=== PATIENT | male | born 1965 | race Caucasian/White ===

== ENCOUNTER 2021-10-14 07:23 | Inpatient (IN) | payer BC, MEDICAID ==
[~2021-10-14] VITALS: Ht 177.8 cm; Wt 95.5 kg
[~2021-10-14 07:23] MED LIST: ONDA8TAB6 PO
--- NOTE | 2021-10-14 08:22 | NUR ---
Stroke alert level [address] Chatterjee, last seen normal was before bed last night.
--- NOTE | 2021-10-14 08:27 | NUR ---
Pt being taken to CT.
[2021-10-14] MEDS ORDERED: iohexol 350MG/ML 100ml bottle IV ONE (08:32)
[2021-10-14 08:47] LABS: ALANINE AMINOTRANSFERASE 35 U/L (12-78); ALBUMIN 3.6 G/DL (3.4-5.0); ALBUMIN/GLOBULIN RATIO 1.1 (1.1-1.5); ALKALINE PHOSPHATASE 108 IU/L (46-116); ANION GAP 13 (8-16); ASPARTATE AMINO TRANSFERASE 1 U/L (10-37); BILIRUBIN,TOTAL 0.2 MG/DL (0.1-1.0); BLOOD UREA NITROGEN 18 MG/DL (7-18); BUN/CREATININE RATIO 18.2 (5.4-32.0); CALCIUM 8.4 MG/DL (8.5-10.1); CHLORIDE 109 MMOL/L (99-107); CREATININE 0.99 MG/DL (0.60-1.10); GLUCOSE 135 MG/DL (70-104); POTASSIUM 3.8 MMOL/L (3.5-5.1); SODIUM 143 MMOL/L (135-145); TOTAL CARBON DIOXIDE 21.3 MMOL/L (24-32); TOTAL PROTEIN 6.9 G/DL (6.4-8.2); eGFR 78 ML/MIN
--- NOTE | 2021-10-14 08:48 | NUR ---
PT BACK FROM CT, STROKE NURSE HAS BEEN AWAITING FOR PT RETURN IN ROOM.
[2021-10-14 08:49] LABS: BASOPHILS # (AUTO) 0.1 X10'3 (0-0.2); BASOPHILS % (AUTO) 0.8 % (0-1); EOSINOPHILS # (AUTO) 0.1 X10'3 (0-0.9); EOSINOPHILS % (AUTO) 1.7 % (0-6); HEMATOCRIT 42.1 % (42.0-52.0); HEMOGLOBIN 14.6 g/dl (14.0-17.9); LYMPHOCYTES # (AUTO) 1.8 X10'3 (1.1-4.8); LYMPHOCYTES % (AUTO) 24.6 % (21-51); MEAN CORPUSCULAR HEMOGLOBIN 30.7 PG (27.0-31.0); MEAN CORPUSCULAR HGB CONC 34.7 g/dL (33.0-36.5); MEAN CORPUSCULAR VOLUME 88.4 FL (78-98); MEAN PLATELET VOLUME 9.1 FL (7.4-10.4); MONOCYTES # (AUTO) 0.5 X10'3 (0-0.9); MONOCYTES % (AUTO) 6.9 % (2-12); NEUTROPHILS # (AUTO) 4.8 X10'3 (1.8-7.7); PLATELET COUNT 231 X10'3 (140-440); RED BLOOD COUNT 4.77 X10'6 (4.70-6.10); RED CELL DISTRIBUTION WIDTH 13.2 % (11.5-14.5); WHITE BLOOD COUNT 7.3 X10'3 (4.5-11.0)
[2021-10-14 09:33] LABS: APTT 26 SECONDS (22-32)
[2021-10-14] MEDS ORDERED: potassium CL 10mEq/100ml bag 100 ML IV PRN (09:35)
[2021-10-14] MEDS ORDERED: mag hydrox/Alum hydrox/simeth 30ml oral suspension PO PRN (09:35)
[2021-10-14] MEDS ORDERED: normal saline 1000ml 1,000 ML IV SCH (09:35)
[2021-10-14] MEDS ORDERED: acetaminophen 325mg tablet PO PRN (09:35)
[2021-10-14] MEDS ORDERED: magnesium hydroxide 30ml (MOM) UD suspension PO PRN (09:35)
[2021-10-14] MEDS ORDERED: magnesium 4gm in 100ml NS 100 ML IV PRN (09:35)
[2021-10-14] MEDS ORDERED: ondansetron/PF 4mg/2ml inj IV PRN (09:35)
[2021-10-14] MEDS ORDERED: magnesium 2GM in 50ml NS 50 ML IV PRN (09:35)
[2021-10-14] MEDS ORDERED: magnesium Cl slow-release 64mg tablet PO PRN (09:35)
[2021-10-14] MEDS ORDERED: POTASSIUM BICARB 20meq eff tab 20 MEQ TABLET.EFF PO PRN ×2 (09:35)
[2021-10-14 10:18] LABS: MAGNESIUM 1.9 MG/DL (1.5-2.4); POTASSIUM 4.3 MMOL/L (3.5-5.1)
[2021-10-14] MEDS ORDERED: clopidogrel 75mg tablet PO SCH (11:25)
--- NOTE | 2021-10-14 11:45 | NUR ---
Pt taken to MRI.
[2021-10-14] MEDS ORDERED: NO HOME MEDS (12:51)
--- NOTE | 2021-10-14 13:49 | NUR ---
relieving RN for break, pt is back from MRI, waiting for bed and test results, pt is GCS 15, alert and oriented x3, resp even and unlabored, family at bedside
--- NOTE | 2021-10-14 15:10 | NUR ---
report received from Simran RN
--- NOTE | 2021-10-14 15:14 | NUR ---
Report given to lucia Harris to go to room 1241L
[2021-10-14 15:20] VITALS: BP 136/77
--- NOTE | 2021-10-14 15:20 | NUR ---
pt arrived to [facility] floor via wheelchair, settled in room 3952V
[2021-10-14] MEDS ORDERED: ATOR20TA PO (16:53)
[2021-10-14] MEDS ORDERED: ASPI81TA52 PO (16:53)
--- NOTE | 2021-10-14 18:04 | NUR ---
Pt discharged to home at 1750, with all belongings, in private vehicle accompanied by . Discharge instructions and medications reviewed. New prescriptions e-scripted to Nilsa Correa. Pt instructed to follow up with PCP in 1-2 weeks, with instructions to return to ED for any new or worsening symptoms. Pt states understanding and willingness to comply with discharge instructions. IV DC'd, cannula intact. [facility]
[2021-10-14] MEDS ORDERED: docusate sod 100mg capsule PO SCH (20:00)
[2021-10-14] MEDS ORDERED: K and/or MAG REPLACEMENT MC SCH (20:00)
[2021-10-15] MEDS ORDERED: aspirin 81mg, enteric-coated 1 TAB TABLET.DR PO SCH (08:00)
== END 2021-10-14 17:45 | disposition home or self-care (01) | DRG 149 ==
LOC: ER 07:27 → ED HOLD 09:37 → PCU 3S 15:32
PROVIDERS: ADMIT Family Medicine; ATTEND Family Medicine
PROC: BW291ZZ Computerized Tomography (CT Scan) of Head and Neck using Low Osmolar Contrast (ICD-10-PCS; principal; 2021-10-14)
DX: H81.10 Benign paroxysmal vertigo, unspecified ear (principal); E78.00 Pure hypercholesterolemia, unspecified; Z91.19 Patient's noncompliance with other medical treatment and regimen; Z88.5 Allergy status to narcotic agent; Z79.899 Other long term (current) drug therapy; Z90.49 Acquired absence of other specified parts of digestive tract; Z88.7 Allergy status to serum and vaccine
CPT/HCPCS: 36415; 70450; 70496; 70498; 70544; 70551; 71045; 80053; 82948; 83735; 83880; 84132; 84484; 85025; 85610; 85730; 93005; 93306; 93880; 99285; A4615; G0378; J3490; J7030; Q9967

== ENCOUNTER 2023-06-12 07:51 | Inpatient (IN) | payer BC ==
[~2023-06-12] VITALS: Ht 177.8 cm; Wt 95.2 kg
[~2023-06-12 07:51] MED LIST changes: +ATOR20TA PO; -ONDA8TAB6 PO
[2023-06-12] MEDS: ondansetron/PF 4mg/2ml inj IV ONE (08:16)
[2023-06-12] MEDS: metroNIDAZOLE-Flagyl 500mg/NS 100 ML IV ONE (08:18)
[2023-06-12] MEDS: normal saline 1000ML IV soln IVB ONE (08:21)
[2023-06-12 08:29] LABS: BASOPHILS % (AUTO) 0.2 % (0-1); EOSINOPHILS % (AUTO) 0.1 % (0-6); HEMATOCRIT 44.1 % (42.0-52.0); HEMOGLOBIN 15.1 g/dl (14.0-17.9); LYMPHOCYTES # (AUTO) 0.6 X10'3 (1.1-4.8); LYMPHOCYTES % (AUTO) 3.5 % (21-51); MEAN CORPUSCULAR HEMOGLOBIN 30.5 PG (27.0-31.0); MEAN CORPUSCULAR HGB CONC 34.3 g/dL (33.0-36.5); MEAN CORPUSCULAR VOLUME 88.8 FL (78-98); MEAN PLATELET VOLUME 8.8 FL (7.4-10.4); MONOCYTES # (AUTO) 0.5 X10'3 (0-0.9); MONOCYTES % (AUTO) 3.4 % (2-12); NEUTROPHILS # (AUTO) 14.7 X10'3 (1.8-7.7); NEUTROPHILS % (AUTO) 92.8 % (42-75); PLATELET COUNT 225 X10'3 (140-440); RED BLOOD COUNT 4.97 X10'6 (4.70-6.10); RED CELL DISTRIBUTION WIDTH 13.5 % (11.5-14.5); WHITE BLOOD COUNT 15.9 X10'3 (4.5-11.0)
[2023-06-12] MEDS: HYDROmorphone 1 mg/ml syringe IV ONE (08:31)
[2023-06-12 08:40] LABS: ALBUMIN 3.8 G/DL (3.4-5.0); ANION GAP 14 (8-16); BLOOD UREA NITROGEN 14 MG/DL (7-18); BUN/CREATININE RATIO 12.2 (10.0-20.0); CALCIUM 8.8 MG/DL (8.5-10.1); CHLORIDE 103 MMOL/L (99-107); CREATININE 1.15 MG/DL (0.60-1.10); GLUCOSE 124 MG/DL (70-104); POTASSIUM 3.9 MMOL/L (3.5-5.1); SODIUM 138 MMOL/L (135-145); eCRCL 73 ML/MIN; eGFR 66 ML/MIN
[2023-06-12] MEDS ORDERED: iohexol 300mg/ml 100ml inj. ONE (09:10)
[2023-06-12] MEDS ORDERED: NO HOME MEDS (09:49)
[2023-06-12] MEDS ORDERED: mag hydrox/Alum hydrox/simeth 30ml oral suspension PO PRN (11:05)
[2023-06-12] MEDS ORDERED: acetaminophen 325mg tablet PO PRN (11:05)
[2023-06-12] MEDS ORDERED: magnesium hydroxide 30ml (MOM) UD suspension PO PRN (11:05)
[2023-06-12] MEDS ORDERED: magnesium 2GM in 50ml NS 50 ML IV PRN (11:05)
[2023-06-12] MEDS ORDERED: HYDROmorphone/PF 0.2 MG/ML SYRINGE IV PRN (11:05)
[2023-06-12] MEDS ORDERED: potassium Cl 20 mEq SR tablet PO PRN (11:05)
[2023-06-12] MEDS ORDERED: magnesium 4gm in 100ml NS 100 ML IV PRN (11:05)
[2023-06-12] MEDS ORDERED: potassium Cl 40MEQ/1/2NS 520ml 520 ML IV PRN (11:05)
[2023-06-12] MEDS: ciprofloxacin lact 400MG/200ML 200 ML IV ONE (11:07)
[2023-06-12] MEDS: normal saline 1000ml 1,000 ML IV SCH (11:18)
[2023-06-12] MEDS: HYDROmorphone inj. 0.5 MG/0.5 ML DISP.SYRIN IV PRN (11:34)
[2023-06-12] MEDS: ondansetron/PF 4mg/2ml inj IV PRN (11:40)
[2023-06-12 14:48] VITALS: BP 122/80; PULSE 71; RESP 20; TEMP 98; O2SAT 99
[2023-06-12] MEDS: proCHLORperazine 10 MG/2 ml inj IV PRN (15:13)
[2023-06-12] MEDS: oxyCODONE/APAP 10/325mg tablet PO PRN (16:18)
[2023-06-12] MEDS: metroNIDAZOLE-Flagyl 500mg/NS 100 ML IV SCH (16:19)
[2023-06-12 17:38] VITALS: RESP 14
[2023-06-12 18:30] VITALS: BP 124/62; PULSE 77; RESP 14; TEMP 98.8; O2SAT 96
[2023-06-12 19:00] VITALS: BP 124/62; PULSE 77; RESP 14; TEMP 98.8; O2SAT 96
[2023-06-12] MEDS: K and/or MAG REPLACEMENT MC SCH (20:00)
[2023-06-12] MEDS: docusate sod 100mg capsule PO SCH (20:13)
[2023-06-12] MEDS: ciprofloxacin lact 400MG/200ML 200 ML IV SCH (20:14)
[2023-06-12] MEDS: enoxaparin 40mg/0.4ml syringe SQ SCH (20:14)
[2023-06-12 22:00] VITALS: BP 109/55; PULSE 75; RESP 14; TEMP 96.6; O2SAT 94
[2023-06-12] MEDS: diatr meglu/diatrizoate 30ml oral sol.-(3 dose) bottle PO SCH (22:00)
[2023-06-13 06:26] LABS: BASOPHILS % (AUTO) 0.1 % (0-1); EOSINOPHILS % (AUTO) 0.1 % (0-6); HEMATOCRIT 37.2 % (42.0-52.0); HEMOGLOBIN 12.9 g/dl (14.0-17.9); LYMPHOCYTES # (AUTO) 0.8 X10'3 (1.1-4.8); LYMPHOCYTES % (AUTO) 6.5 % (21-51); MEAN CORPUSCULAR HEMOGLOBIN 30.9 PG (27.0-31.0); MEAN CORPUSCULAR HGB CONC 34.8 g/dL (33.0-36.5); MEAN CORPUSCULAR VOLUME 88.8 FL (78-98); MEAN PLATELET VOLUME 8.8 FL (7.4-10.4); MONOCYTES # (AUTO) 0.7 X10'3 (0-0.9); MONOCYTES % (AUTO) 5.3 % (2-12); NEUTROPHILS # (AUTO) 10.8 X10'3 (1.8-7.7); PLATELET COUNT 172 X10'3 (140-440); RED BLOOD COUNT 4.19 X10'6 (4.70-6.10); RED CELL DISTRIBUTION WIDTH 13.2 % (11.5-14.5); WHITE BLOOD COUNT 12.2 X10'3 (4.5-11.0)
[2023-06-13 06:30] VITALS: BP 96/45; PULSE 59; RESP 12; TEMP 96.8; O2SAT 96
[2023-06-13 06:52] LABS: ALANINE AMINOTRANSFERASE 65 U/L (12-78); ALBUMIN 2.8 G/DL (3.4-5.0); ALBUMIN/GLOBULIN RATIO 0.9 (1.1-1.5); ALKALINE PHOSPHATASE 82 IU/L (46-116); ANION GAP 8 (8-16); ASPARTATE AMINO TRANSFERASE 25 U/L (10-37); BLOOD UREA NITROGEN 13 MG/DL (7-18); BUN/CREATININE RATIO 13.4 (10.0-20.0); CALCIUM 7.5 MG/DL (8.5-10.1); CHLORIDE 106 MMOL/L (99-107); CHOL/HDL RATIO 3.8 (0.00-4.99); CHOLESTEROL 130 MG/DL (0-200); CREATININE 0.97 MG/DL (0.60-1.10); GLUCOSE 126 MG/DL (70-104); HDL CHOLESTEROL 34 MG/DL (35-60); LDL CHOLESTEROL 81 MG/DL (50-100); MAGNESIUM 1.8 MG/DL (1.5-2.4); POTASSIUM 3.6 MMOL/L (3.5-5.1); SODIUM 138 MMOL/L (135-145); TOTAL CARBON DIOXIDE 24.3 MMOL/L (24-32); TRIGLYCERIDES 80 MG/DL (20-135); eCRCL 87 ML/MIN; eGFR 80 ML/MIN
[2023-06-13 14:57] VITALS: BP 106/52; PULSE 78; RESP 16; TEMP 98; O2SAT 96
[2023-06-13 15:02] VITALS: TEMP 98
[2023-06-13 22:00] VITALS: BP 104/62; PULSE 69; RESP 16; TEMP 97.5; O2SAT 96
[2023-06-14 06:00] VITALS: BP 130/62; PULSE 63; RESP 14; TEMP 98.2; O2SAT 95
[2023-06-14 06:50] LABS: BASOPHILS % (AUTO) 0.1 % (0-1); EOSINOPHILS % (AUTO) 0.2 % (0-6); HEMATOCRIT 35.1 % (42.0-52.0); HEMOGLOBIN 12.1 g/dl (14.0-17.9); LYMPHOCYTES # (AUTO) 0.7 X10'3 (1.1-4.8); LYMPHOCYTES % (AUTO) 6.9 % (21-51); MEAN CORPUSCULAR HEMOGLOBIN 30.8 PG (27.0-31.0); MEAN CORPUSCULAR HGB CONC 34.4 g/dL (33.0-36.5); MEAN CORPUSCULAR VOLUME 89.3 FL (78-98); MEAN PLATELET VOLUME 9.1 FL (7.4-10.4); MONOCYTES # (AUTO) 0.5 X10'3 (0-0.9); MONOCYTES % (AUTO) 4.8 % (2-12); PLATELET COUNT 168 X10'3 (140-440); RED BLOOD COUNT 3.93 X10'6 (4.70-6.10); RED CELL DISTRIBUTION WIDTH 13.4 % (11.5-14.5); WHITE BLOOD COUNT 10.2 X10'3 (4.5-11.0)
[2023-06-14 07:15] LABS: ALANINE AMINOTRANSFERASE 51 U/L (12-78); ALBUMIN 2.7 G/DL (3.4-5.0); ALBUMIN/GLOBULIN RATIO 0.8 (1.1-1.5); ALKALINE PHOSPHATASE 105 IU/L (46-116); ANION GAP 9 (8-16); ASPARTATE AMINO TRANSFERASE 12 U/L (10-37); BILIRUBIN,TOTAL 1.2 MG/DL (0.1-1.0); BLOOD UREA NITROGEN 11 MG/DL (7-18); BUN/CREATININE RATIO 12.8 (10.0-20.0); CALCIUM 7.8 MG/DL (8.5-10.1); CHLORIDE 104 MMOL/L (99-107); CREATININE 0.86 MG/DL (0.60-1.10); GLUCOSE 105 MG/DL (70-104); POTASSIUM 3.3 MMOL/L (3.5-5.1); SODIUM 137 MMOL/L (135-145); TOTAL CARBON DIOXIDE 24.1 MMOL/L (24-32); TOTAL PROTEIN 6.2 G/DL (6.4-8.2); eCRCL 98 ML/MIN; eGFR > 90 ML/MIN
[2023-06-14 08:16] LABS: C DIFF ANTIGEN POSITIVE (NEGATIVE); C DIFF SPECIMEN=DIARRHEA? ACCEPTABLE; C DIFFICILE TOXINS A&B POSITIVE (Neg)
[2023-06-14] MEDS: potassium Cl 20 mEq SR tablet PO PRN (09:42)
[2023-06-14] MEDS ORDERED: METR-349 PO (12:02)
[2023-06-14] MEDS ORDERED: LACT1CAP26 PO (12:02)
[2023-06-14 12:06] VITALS: BP 156/81; PULSE 64; RESP 17; TEMP 97; O2SAT 99
[2023-06-14] MEDS ORDERED: HYDR-3965 PO (15:05)
[2023-06-14] MEDS ORDERED: lactobacillus rhamnosus 10,000 MMU CELLS/CAPSULE PO SCH (20:00)
== END 2023-06-14 15:25 | disposition home or self-care (01) | DRG 372 ==
LOC: ER 07:51 → ED HOLD 11:13 → SUR 3N 14:30
PROVIDERS: ADMIT Family Medicine; ATTEND Family Medicine
PROC: BW211ZZ Computerized Tomography (CT Scan) of Abdomen and Pelvis using Low Osmolar Contrast (ICD-10-PCS; principal; 2023-06-12)
DX: A04.72 Enterocolitis due to Clostridium difficile, not specified as recurrent (principal); K57.32 Diverticulitis of large intestine without perforation or abscess without bleeding; N32.1 Vesicointestinal fistula; N17.9 Acute kidney failure, unspecified; F12.90 Cannabis use, unspecified, uncomplicated; E78.00 Pure hypercholesterolemia, unspecified; Z82.49 Family history of ischemic heart disease and other diseases of the circulatory system; Z80.7 Family history of other malignant neoplasms of lymphoid, hematopoietic and related tissues; Z80.3 Family history of malignant neoplasm of breast; Z80.1 Family history of malignant neoplasm of trachea, bronchus and lung; Z90.49 Acquired absence of other specified parts of digestive tract; Z88.5 Allergy status to narcotic agent; Z88.7 Allergy status to serum and vaccine
CPT/HCPCS: 36415; 74176; 74177; 80048; 80053; 80061; 83605; 83735; 85025; 87040; 87081; 87324; 87449; 99285; A6258; G0378; J0744; J0780; J1170; J1650; J2405; J3490; J7030; Q9963; Q9967